=== PATIENT | male | born 1940 | race Caucasian/White ===

== ENCOUNTER 2021-12-22 12:18 | Day surgery (SDC) | payer MEDICARE, OTHER ==
[2021-12-22] MEDS ORDERED: Depo-Medrol 40 MG/ML IM ONE (12:19)
[2021-12-22] MEDS ORDERED: LIDOCAINE HCL 2% 100 MG/5 ML IJ ONE (12:19)
[2021-12-22 13:50] LABS: INR 1.06 (0.8-3.0); PROTIME 11.2 SECONDS (9.4-12.5)
[2021-12-22] MEDS ORDERED: DIPRIVAN 200 MG/20 ML IV ONE (14:07)
--- NOTE | 2021-12-22 14:54 | XRAY ---
Indication: Bilateral L4-S1 MBB. Intraoperative fluoroscopy provided for 32 seconds. Single digital spot image submitted for interpretation demonstrates posterior needle tips projecting over the expected left and right L4-S1 nerve roots. Correlate with intraoperative findings/report.
--- NOTE | 2021-12-22 14:56 | XRAY ---
32 seconds fluoroscopy time in surgery for bilateral L4-S1 MBB.
[2021-12-22] MEDS ORDERED: Lactated Ringers 1,000 ML IV ONE (17:28)
== END 2021-12-22 14:37 | disposition home or self-care (01) ==
LOC: SDC-PAIN 12:18
PROVIDERS: ATTEND Psychiatry & Neurology Pain Medicine
DX: M47.816 Spondylosis without myelopathy or radiculopathy, lumbar region (principal); Z79.01 Long term (current) use of anticoagulants
CPT/HCPCS: 36415; 64493; 64494; 72020; 77002; 85610; J1030; J2704

== ENCOUNTER 2022-01-19 11:00 | Day surgery (SDC) | payer MEDICARE, OTHER ==
[2022-01-19] MEDS ORDERED: Sodium Chloride 0.9(Preservative Free) 10 ML IJ ONE (11:01)
[2022-01-19] MEDS ORDERED: Depo-Medrol 40 MG/ML IM ONE (11:01)
[2022-01-19 12:03] LABS: INR 1.13 (0.8-3.0); PROTIME 11.8 SECONDS (9.4-12.5)
[2022-01-19] MEDS ORDERED: DIPRIVAN 200 MG/20 ML IV ONE (13:23)
[2022-01-19] MEDS ORDERED: Lactated Ringers 1,000 ML IV ONE ×2 (13:40→14:22)
--- NOTE | 2022-01-19 14:38 | XRAY ---
Indication: Caudal SINAN. Intraoperative fluoroscopy provided for 23 seconds. 5 digital spot image submitted for interpretation demonstrates caudal needle tip projecting mid sacrum. Small amount of contrast injected for needle tip placement. Correlate with intraoperative findings/report.
--- NOTE | 2022-01-19 15:13 | XRAY ---
23 seconds fluoroscopy time in surgery for caudal SINAN. 11 seconds fluoroscop tume insurgery for bilateral L4-SI
== END 2022-01-19 13:46 | disposition home or self-care (01) ==
LOC: SDC-PAIN 11:00
PROVIDERS: ATTEND Psychiatry & Neurology Pain Medicine
DX: M54.16 Radiculopathy, lumbar region (principal); Z79.01 Long term (current) use of anticoagulants; Z79.899 Other long term (current) drug therapy
CPT/HCPCS: 36415; 62323; 72220; 77003; 85610; J1030; J2704; Q9966

== ENCOUNTER 2022-06-08 10:04 | Day surgery (SDC) | payer MEDICARE, OTHER ==
[2022-06-08] MEDS ORDERED: Depo-Medrol 40 MG/ML IM ONE (10:05)
[2022-06-08] MEDS ORDERED: LIDOCAINE HCL 1% 50 MG/5 ML VL PF IJ ONE (10:05)
[2022-06-08] MEDS ORDERED: Sodium Chloride 0.9(Preservative Free) 10 ML IJ ONE (10:05)
[2022-06-08 10:55] LABS: INR 1.08 (0.8-3.0); PROTIME 11.7 SECONDS (9.4-12.5)
[2022-06-08] MEDS ORDERED: DIPRIVAN 200 MG/20 ML IV ONE (11:48)
--- NOTE | 2022-06-08 13:06 | XRAY ---
Indication: Lumbar SINAN. Intraoperative fluoroscopy provided for 14 seconds. 3 digital spot images submitted for interpretation demonstrates posterior needle tip projecting posterior to lumbosacral interspace. Small amount of contrast injected for needle tip placement. Correlate with intraoperative findings/report.
--- NOTE | 2022-06-08 13:08 | XRAY ---
14 seconds of fluoroscopy was used in surgery for a lumbar SINAN.
[2022-06-08] MEDS ORDERED: Lactated Ringers 1,000 ML IV ONE (14:04)
== END 2022-06-08 12:20 | disposition home or self-care (01) ==
LOC: SDC-PAIN 10:04
PROVIDERS: ATTEND Psychiatry & Neurology Pain Medicine
DX: M54.16 Radiculopathy, lumbar region (principal); I48.91 Unspecified atrial fibrillation; Z79.899 Other long term (current) drug therapy; Z79.01 Long term (current) use of anticoagulants
CPT/HCPCS: 36415; 62323; 72100; 77003; 85610; J1030; J2001; J2704; Q9966

== ENCOUNTER 2022-09-07 07:57 | Day surgery (SDC) | payer MEDICARE, OTHER ==
[2022-09-07] MEDS ORDERED: LIDOCAINE HCL 2% 100 MG/5 ML IJ ONE (07:58)
[2022-09-07] MEDS ORDERED: Depo-Medrol 40 MG/ML IM ONE (07:58)
[2022-09-07 09:17] LABS: INR 1.04 (0.8-3.0); PROTIME 11.3 SECONDS (9.4-12.5)
[2022-09-07] MEDS ORDERED: DIPRIVAN 200 MG/20 ML IV ONE (09:34)
--- NOTE | 2022-09-07 10:54 | XRAY ---
Indication: Bilateral L4-S1 MBB. Intraoperative fluoroscopy provided for 23 seconds. Single digital spot image submitted for interpretation demonstrates posterior needle tips projecting over the expected left and right L4-S1 nerve roots. Correlate with intraoperative findings/report.
[2022-09-07] MEDS ORDERED: Lactated Ringers 1,000 ML IV ONE (14:44)
== END 2022-09-07 10:10 | disposition home or self-care (01) ==
LOC: SDC-PAIN 07:57
PROVIDERS: ATTEND Psychiatry & Neurology Pain Medicine
DX: M47.816 Spondylosis without myelopathy or radiculopathy, lumbar region (principal); Z79.899 Other long term (current) drug therapy; Z79.01 Long term (current) use of anticoagulants
CPT/HCPCS: 36415; 64493; 64494; 72020; 77002; 85610; J1030; J2704

== ENCOUNTER 2022-11-02 11:10 | Day surgery (SDC) | payer MEDICARE, OTHER ==
[2022-11-02] MEDS ORDERED: BUPIVACAINE 0.5% VIAL IJ ONE (11:11)
[2022-11-02] MEDS ORDERED: Depo-Medrol 40 MG/ML IM ONE (11:11)
[2022-11-02 12:00] LABS: PROTIME 10.9 SECONDS (9.4-12.5)
[2022-11-02] MEDS ORDERED: DIPRIVAN 200 MG/20 ML IV ONE (12:31)
--- NOTE | 2022-11-02 13:15 | XRAY ---
Indication: Bilateral L4-S1 MBB. Intraoperative fluoroscopy provided for 27 seconds. Single digital spot image submitted for interpretation demonstrates posterior needle tips projecting over the expected left and right L4-S1 nerve roots. Correlate with intraoperative findings/report.
--- NOTE | 2022-11-02 13:23 | XRAY ---
27 seconds of fluoroscopy was used in surgery for a bilateral L4-S1 MBB.
[2022-11-02] MEDS ORDERED: Lactated Ringers 1,000 ML IV ONE (13:36)
== END 2022-11-02 13:00 | disposition home or self-care (01) ==
LOC: SDC-PAIN 11:10
PROVIDERS: ATTEND Psychiatry & Neurology Pain Medicine
DX: M47.816 Spondylosis without myelopathy or radiculopathy, lumbar region (principal); Z79.899 Other long term (current) drug therapy
CPT/HCPCS: 36415; 64493; 64494; 72020; 77002; 85610; J1030; J2704

== ENCOUNTER 2023-01-18 09:59 | Day surgery (SDC) | payer MEDICARE, OTHER ==
[2023-01-18] MEDS ORDERED: BUPIVACAINE 0.5% VIAL IJ ONE (10:00)
[2023-01-18] MEDS ORDERED: Depo-Medrol 40 MG/ML IM ONE (10:00)
[2023-01-18] MEDS ORDERED: LIDOCAINE HCL 1% 50 MG/5 ML VL PF IJ ONE (10:00)
[2023-01-18 10:43] LABS: INR 0.97 (0.8-3.0); PROTIME 10.6 SECONDS (9.4-12.5)
[2023-01-18] MEDS ORDERED: DIPRIVAN 200 MG/20 ML IV ONE (11:20)
--- NOTE | 2023-01-18 12:30 | XRAY ---
Indication: Left L4-S1 RFA. Intraoperative fluoroscopy provided for 25 seconds. 4 digital spot images submitted for interpretation demonstrates posterior needle tips projecting over the expected left L4-S1 nerve roots. Correlate with intraoperative findings/report.
--- NOTE | 2023-01-18 12:42 | XRAY ---
25 seconds of fluoroscopy was used in surgery for a left L4-S1 RFA.
[2023-01-18] MEDS ORDERED: Lactated Ringers 1,000 ML IV ONE (13:19)
== END 2023-01-18 11:55 | disposition home or self-care (01) ==
LOC: SDC-PAIN 09:59
PROVIDERS: ATTEND Psychiatry & Neurology Pain Medicine
DX: M47.816 Spondylosis without myelopathy or radiculopathy, lumbar region (principal); Z79.899 Other long term (current) drug therapy; Z79.01 Long term (current) use of anticoagulants
CPT/HCPCS: 36415; 64635; 64636; 72100; 77002; 85610; 99100; J1030; J2001; J2704

== ENCOUNTER 2023-05-03 09:08 | Day surgery (SDC) | payer MEDICARE, OTHER ==
[2023-05-03] MEDS ORDERED: XYLOCAINE-MPF 1% 5ML SDV IJ ONE (09:09)
[2023-05-03] MEDS ORDERED: BUPIVACAINE 0.5% VIAL IJ ONE (09:09)
[2023-05-03] MEDS ORDERED: Depo-Medrol 40 MG/ML IM ONE (09:09)
[2023-05-03 10:44] LABS: INR 2.98 (0.8-3.0); PROTIME 30.2 SECONDS (9.4-12.5)
--- NOTE | 2023-05-03 13:16 | XRAY ---
Indication: Bilateral SI joint injection. Intraoperative fluoroscopy provided for 18 seconds. 4 digital spot images submitted for interpretation demonstrates posterior needle tip projecting over the expected left and right SI joint. Correlate with intraoperative findings/report.
--- NOTE | 2023-05-03 15:08 | XRAY ---
18 seconds of fluoroscopy was used in surgery for a bilateral sacroiliac joint injection.
== END 2023-05-03 12:17 | disposition home or self-care (01) ==
LOC: SDC-PAIN 09:08
PROVIDERS: ATTEND Psychiatry & Neurology Pain Medicine
DX: M46.1 Sacroiliitis, not elsewhere classified (principal); Z79.01 Long term (current) use of anticoagulants
CPT/HCPCS: 27096; 36415; 72202; 77002; 85610; G0260; J1030